=== PATIENT | female | born 1940 | race Caucasian/White ===

== ENCOUNTER 2017-12-19 10:02 | Inpatient (IN) | payer MEDICARE ==
[2017-12-19] MEDS ORDERED: CIPROFLOXACIN 400 MG IVPB ONE (10:42)
[2017-12-19] MEDS ORDERED: NS 0.9% 1000 ML* 1,000 ML IV ONE (10:42)
[2017-12-19] MEDS ORDERED: IVPREMIX IVPB ONE (10:42)
--- NOTE | 2017-12-19 10:47 | ED ---
Back Pain - HPI Summary HPI Summary: The patient is a 76 y/o F presenting to [facility] accompanied by daughter with a chief complaint of chronic back pain that has worsened within the last week. The intermittent sharp and excruciating pain is worse on the right lower side than the left, with an overall rating of 8/10 in severity. The pain is not aggravated or alleviated by anything, and she has not taken any medications to treat the pain [employer]. She additionally c/o fever of 101F, which started last night and has persisted into this morning. She denies dysuria. She has hx of kidney infections, but denies past renal calculi. Her daughter states that the pt has been having episodes of falling asleep while talking. She also has hx of angiosarcoma and breast cancer, but is in remission. She also visited Dr. Hurtado recently for a skin biopsy, which revealed squamous cell growth. - History of Current Complaint Chief Complaint: Jean Stated Complaint: LOWER BACK PAIN/FEVER Time Seen by Provider: 12/19/17 10:20 Hx Obtained From: Patient Onset/Duration: Sudden Onset, Lasting Hours - fever starting last night, Lasting Days - back pain for approximately a week, Still Present Onset/Duration: Started Hours Ago - fever starting last night, Started Days Ago - back pain for a week, Still Present Timing: Intermittent Back Pain Location: Is Discrete @ - bilateral sides, but worse on right lower side Severity Initially: Moderate Severity Currently: Moderate Pain Intensity: 8 Pain Scale Used: 0-10 Numeric Character: Sharp Aggravating Symptom(s): Nothing Alleviating Symptom(s): Nothing Associated Signs And Symptoms: Positive: Fever - 101F, Other - NEGATIVE: dysuria - Allergies/Home Medications Allergies/Adverse Reactions: Allergies Allergy/AdvReac Type Severity Reaction Status Date / Time brimonidine Allergy Intermediate Eyes Verified 12/19/17 10:11 Itchy/Swollen/Red/Watery dexamethasone Allergy Intermediate Rash Verified 12/19/17 10:11 acetaminophen Allergy Unknown See Comment Verified 12/19/17 10:11 Home Medications: Home Medications Azo Bladder Control Capsule 1 tab PO DAILY 12/19/17 [History Confirmed 12/19/17] Famotidine 40 mg PO DAILY 12/19/17 [History Confirmed 12/19/17] Fish Oil 1,000 mg Capsule 2,000 mg PO DAILY 12/19/17 [History Confirmed 12/19/17 ] Levothyroxine TAB* [Synthroid 125 MCG TAB*] 125 mcg PO DAILY 12/19/17 [History Confirmed 12/19/17] Lisinopril 20 mg PO DAILY 12/19/17 [History Confirmed 12/19/17] Magnesium Oxide 1 tab PO QID 12/19/17 [History Confirmed 12/19/17] Netarsudil Mesylate [Rhopressa] 1 drop BOTH EYES BEDTIME 12/19/17 [History Confirmed 12/19/17] Vitamin D TAB* 1 tab PO DAILY 12/19/17 [History Confirmed 12/19/17] dilTIAZem HCl [Diltiazem 24Hr ER] 1 tab PO DAILY 12/19/17 [History Confirmed 12/26] PMH/Surg Hx/FS Hx/Imm Hx Endocrine/Hematology History: Reports: Hx Diabetes, Hx Thyroid Disease - HYPO Denies: Hx Anticoagulant Therapy, Hx Systemic Lupus Erythematosus, Hx Anemia Cardiovascular History: Reports: Hx Hypertension, Other Cardiovascular Problems/ Disorders - 2010 DVT RIGHT CALF Denies: Hx Congestive Heart Failure, Hx Pacemaker/ICD Respiratory History: Reports: Hx Asthma - HX OF, NO INHALERS, Hx Sleep Apnea - will bring own CPAP from home Denies: Hx Chronic Obstructive Pulmonary Disease (COPD) GI History: Reports: Hx Gastroesophageal Reflux Disease, Hx Hiatal Hernia History: Reports: Other Problems/Disorders - HX OF BLADDER INFECTIONS, NONE NOW Denies: Hx Dialysis, Hx Renal Disease Musculoskeletal History: Reports: Hx Arthritis - BILATERAL KNEES, Other Musculoskeletal History - bilateral TKR Denies: Hx Rheumatoid Arthritis, Hx Osteoporosis Sensory History: Reports: Hx Cataracts, Hx Contacts or Glasses, Hx Glaucoma - BILAT, Hx Hearing Problem - QAGAN TAYAGUNGIN, no hearing aids Denies: Hx Hearing Aid Opthamlomology History: Reports: Hx Cataracts, Hx Contacts or Glasses, Hx Glaucoma - BILAT Neurological History: Denies: Hx Dementia, Hx Seizures Psychiatric History: Denies: Hx Panic Disorder, Hx Substance Abuse - Cancer History Cancer Type, Location and Year: BREAST CA, ANGIOSARCOMA Hx Chemotherapy: Yes Hx Radiation Therapy: Yes - for breast cancer - Surgical History Surgery Procedure, Year, and Place: bilateral TKR 1999, 2000 [facility]. RIGHT TOTAL KNEE REVISION 2010 [facility]. LT MASTECTOMY 05/23 [facility]. APPENDECTOMY. L BREAST LUMPECTOMY 1998 [facility]. ANGIOSARCOMA [facility]. 01/2015 BILATERAL CATARACT EXTRACTION WITH IOL IMPLANT AND ISTENTS PLACEMENT, [facility]- CONDITIONAL 5- SAFE UP TO 3T W/ MAX SPATIAL GRADIENT FIELD OF 4000 GAUSS/CM. RT SIDE PORT PLACEMENT 2015 Hx Anesthesia Reactions: No Infectious Disease History: No Infectious Disease History: Reports: History Other Infectious Disease - UNKNOWN INFECTION RIGHT TOTAL KNEE REPLACEMENT Denies: Hx Hepatitis, Hx Human Immunodeficiency Virus (HIV), Traveled Outside the [place] in Last 30 Days - Family History Known Family History: Positive: Hypertension - Social History Alcohol Use: None Hx Substance Use: No Substance Use Type: Reports: None Hx Tobacco Use: No Smoking Status (MU): Never Smoked Tobacco Review of Systems Positive: Fever - 101F Negative: dysuria Positive: Other - bilateral lower back pain with pain worse on right than left All Other Systems Reviewed And Are Negative: Yes Physical Exam - Summary Physical Exam Summary: Appearance: The patient is well-nourished in no acute distress and in no acute pain. Skin: The skin is warm and slightly diaphoretic and skin color reflects adequate perfusion. HEENT: The head is normocephalic and atraumatic. The pupils are equal and reactive. The conjunctivae are clear and without drainage. Nares are patent and without drainage. Mouth reveals moist mucous membranes and the throat is without erythema and exudate. The external ears are intact. The ear canals are patent and without drainage. The tympanic membranes are intact. Neck: The neck is supple with full range of motion and non-tender. There are no carotid bruits. There is no neck vein distension. Respiratory: Chest is non-tender. Lungs are clear to auscultation and breath sounds are symmetrical and equal. Cardiovascular: Heart is regular rate and rhythm. There is no murmur or rub auscultated. There is no peripheral edema and pulses are symmetrical and equal. Abdomen: The abdomen is soft and non-tender. There are normal bowel sounds heard in all four quadrants and there is no organomegaly palpated. Musculoskeletal: There is no back tenderness noted. Extremities are non-tender with full range of motion. There is good capillary refill. There is no peripheral edema or calf tenderness elicited. Neurological: Patient is alert and oriented to person, place and time. The patient has symmetrical motor strength in all four extremities. Cranial nerves are grossly intact. Deep tendon reflexes are symmetrical and equal in all four extremities. Psychiatric: The patient has an appropriate affect and does not exhibit any anxiety or depression. Triage Information Reviewed: Yes Vital Signs On Initial Exam: Initial Vitals Temp Pulse Resp BP Pulse Ox 101.5 F 85 14 161/60 96 12/19/17 10:06 12/19/17 10:06 12/19/17 10:06 12/19/17 10:06 12/19/17 10:06 Vital Signs Reviewed: Yes Diagnostics - Vital Signs Vital Signs Temp Pulse Resp BP Pulse Ox 12/19/17 10:06 101.5 F 85 14 161/60 96 - Laboratory Result Diagrams: 12/19/17 11:20 12/19/17 11:20 Lab Statement: Any lab studies that have been ordered have been reviewed, and results considered in the medical decision making process. - CT Abd/Pel CT CT Interpretation Completed By: Radiologist Summary of CT Findings: 1. Perinephric stranding on the right, which may indicate forniceal rupture versus pyelonephritis, with a probable 0.3 cm calculus of the right mid ureter, without significant hydronephrosis. 2. Atherosclerosis. 3. Diverticulosis. ED physician has reviewed this report. Back Pain Course/Dx - Course Course Of Treatment: Ms. Moreno presented with several days of right flank pain culminating in a fever today. She was not septic on arrival here but the story was pretty good for a pyelonephritis. Therefore she was given IV fluids and IV Cipro while labs and a CT were obtained. She has no history of kidney stones. She did had no leukocytosis, a CRP elevation over 100 and a urine that was somewhat equivocal with white blood cells and red blood cells but no bacteria. CT revealed a 3 mm midureteral stone on the right without hydro-and perinephritic stranding consistent with pyelo but possibly extravasation. Dr. jarquin was contacted came to the emergency department and evaluated the patient recommended admission to the hospitalist and adding gentamicin. - Diagnoses Provider Diagnoses: Pyelonephritis, Kidney stone on right side - Provider Notifications Discussed Care Of Patient With: Angel Green - urologist Time Discussed With Above Provider: 13:42 Instructed by Provider To: Other - Dr. Green will come see the patient in the ED. I also spoke with Dr. Gunderson, hospitalist, at [1355] concerning admission to [facility]. Dr. Gunderson accepts the patient for admission. - Critical Care Time Critical Care Time: 30-74 min Discharge - Sign-Out/Discharge Documenting (check all that apply): Patient Departure - Patient will be admitted to [facility] for further care under Dr. Gunderson. - Discharge Plan Condition: Stable Disposition: ADMITTED TO [facility] - Billing Disposition and Condition Condition: STABLE Disposition: Admitted to [facility] - Attestation Statements Document Initiated by Scribe: Yes Documenting Scribe: Marley Osorio Provider For Whom Marla is Documenting (Include Credential): Dr. Almas Fang MD Scribe Attestation: Marley Rich scribed for Dr. Almas Fang MD on 12/19/17 at 1540. Scribe Documentation Reviewed: Yes Provider Attestation: The documentation as recorded by the Marley juan accurately reflects the service I personally performed and the decisions made by me, Dr. Almas Fang MD
[2017-12-19 11:33] LABS: ABS Basophils 0.1 10^3/ul (0-0.2); ABS Eosinophils 0 10^3/ul (0-0.6); ABS Lymphocytes 1.1 10^3/ul (1.0-4.8); ABS Neutrophils 8.3 10^3/ul (1.5-7.7); ABS Nucleated RBC 0 10^3/ul; Eosinophil % 0.3 % (0-6); Hematocrit 37 % (35-47); Hemoglobin 12.2 g/dl (12.0-16.0); Lymphocyte % 10.1 % (25-47); Mean Corpuscular HGB Conc 33 g/dl (31-36); Mean Corpuscular Hemoglobin 30 pg (27-31); Mean Corpuscular Volume 91 fL (80-97); Mean Platelet Volume 7.6 fL (7.4-10.4); Nucleated Red Blood Cells % 0; Platelet Count 178 10^3/ul (150-450); Red Blood Count 4.01 10^6/ul (4.00-5.40); Red Cell Distribution Width 14 % (10.5-15); White Blood Count 10.5 10^3/ul (3.5-10.8)
[2017-12-19] MEDS ORDERED: Ibuprofen TAB* 600 MG PO ONE (12:35)
[2017-12-19 13:00] LABS: Urine Appearance Cloudy; Urine Blood 1+ (Negative); Urine Color Yellow; Urine Ketones Negative (Negative); Urine Protein Negative (Negative); Urine Red Blood Cell 3+(>10/hpf) (Absent); Urine Specific Gravity 1.012 (1.010-1.030); Urine Urobilinogen Negative (Negative); Urine White Blood Cell 3+(>20/hpf) (Absent)
[2017-12-19] MEDS ORDERED: Gentamicin ADULT (*) 40 MG/ML VIAL IVPB ONE (13:56)
[2017-12-19] MEDS ORDERED: Gentamicin ADULT (*) 160 MG in NS 0.9% 100 ML* 100 ML IVPB ONE (14:30)
[2017-12-19] MEDS: NS 0.9% 1000 ML* 1,000 ML IV ONE ×2 (14:45→15:17)
[2017-12-19] MEDS ORDERED: Ibuprofen TAB* 800 MG PO PRN (14:47)
[2017-12-19] MEDS ORDERED: Dextrose 50% Syringe 50 ML* 25 GM/50 ML SYRINGE IV PUSH PRN (14:59)
[2017-12-19] MEDS: oxyCODONE/Acetamin 5/325 MG* TAB PO PRN (16:06)
[2017-12-19] MEDS: Insulin LISPRO* 1 UNITS UNIT SUBCUT SCH (16:44)
--- NOTE | 2017-12-19 21:24 | HP ---
AMENDED REPORT NOW INCLUDES COSIGNER DESIGNATION CC: Dr. Cowart * [facility] MEDICINE HISTORY AND PHYSICAL: DATE OF ADMISSION: 12/19/17 PRIMARY CARE PHYSICIAN: Dr. Cowart. ATTENDING PHYSICIAN: Jessica Peralta MD * (dictation provided by Mnie Gunderson NP ) CHIEF COMPLAINT: Right-sided back pain with fever. HISTORY OF PRESENT ILLNESS: Ms. Moreno is a 76-year-old female with a past medical history of angiosarcoma and left breast cancer as well as hypertension, diabetes, and obstructive sleep apnea, with CPAP use who presents to the hospital today with right-sided back pain and fever. Ms. Moreno states that her symptoms began about 2 weeks ago. She was having pain in her right back. She has chronic back pain and thought that perhaps this was just an exacerbation of this; however, she does not typically have pain on the right side. As of yesterday, she was having much more severe pain on the right side. She also developed nausea, but no vomiting. Today, her daughter checked her temperature and noted to be 102 and therefore brought her to the emergency room for evaluation. The patient denies any dysuria, though she does report frequency. She denies chest pain, shortness of breath. She denies abdominal pain. In the emergency room, she was found to have a normal white blood cell count, but to have a fever up to 101.8. Her blood pressure was stable. She is not tachycardic. Urinalysis revealed 3+ leukocyte esterase, no nitrites, no bacteria. Abdomen pelvis CT showed perinephric stranding on the right with a 0.3 cm calculus, but that was nonobstructing. The patient had consultation with Dr. Green in the ED who felt that no stent was needed at this time due to the small size of the stone. He anticipated that it would pass on its own. 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 3. Hypertension. 4. Sleep apnea, using CPAP. 5. Type 2 diabetes, [id number]. 6. Hiatal hernia. 7. Chronic back pain. 8. DVT in the right lower extremity in 2000 at the time of her right knee replacement. PAST SURGICAL HISTORY: 1. Left mastectomy for ER and [place] positive, HER2 negative adenocarcinoma. 2. Total right knee in 2000 with secondary infection in 2010. 3. Left breast lumpectomy 16 years ago. 4. Appendectomy in 1980. 5. Bilateral eye surgery in 2014. ALLERGIES: To BRIMONIDINE, DEXAMETHASONE, and TIMOLOL. The patient has reported allergy to TYLENOL, but she just indicates that she does not want to take the medication out of fear that it will hurt her liver. FAMILY HISTORY: Unobtainable as the patient is adopted. SOCIAL HISTORY: No report of alcohol, tobacco, or drug use. The patient lives alone and states that her daughter, Anamaria, would be the healthcare proxy. REVIEW OF SYSTEMS: A 14-point review of systems was completed with Ms. Moreno and all those not mentioned above were negative. PHYSICAL EXAMINATION GENERAL: Ms. Moreno is lying in the bed. She is in no acute distress. VITAL SIGNS: Temperature 100.6, pulse rate 74, oxygen saturation 97, blood pressure 127/57. LUNGS: Clear to auscultation bilaterally with no accessory muscle use and good aeration. HEART: S1, S2. No murmur, rub, or gallop and regular. ABDOMEN: Soft, nontender with bowel sounds positive x4. EXTREMITIES: No cyanosis, no edema. NEURO: She is alert. She is oriented x3. She moves all extremities equally. There is no facial asymmetry or focal weakness. Extraocular movements are intact. SKIN: Intact. LABORATORY DATA/DIAGNOSTIC STUDIES: WBC 10.5, hemoglobin 12.2, hematocrit 37, platelet count 178. Sodium 131, potassium 4.2, chloride 100, serum bicarbonate 27, BUN 14, creatinine 0.72. CRP 116.45. Urine shows 3+ leukocyte esterase, no bacteria, no nitrites. CT abdomen and pelvis is read as follows: Occult perinephric stranding on the right, which may indicate forniceal rupture versus pyelonephritis with a probable 0.3 cm calculus of the right mid ureter without significant hydronephrosis. It also showed atherosclerosis with diverticulosis and a fat containing inguinal and abdominal hernias." ASSESSMENT AND PLAN: Ms. Moreno is a 76-year-old female with a past medical history of [id number] diabetes; obstructive sleep apnea, on CPAP; hypertension; adenocarcinoma; and breast cancer who presents today to the hospital with concern for right back pain and fever, found to have a right- sided pyelonephritis with a nonobstructing renal calculi. Our plans are for inpatient admission in the hospital for the followin. Pyelonephritis: I appreciate the consultation from Dr. Green. He states that he would recommend antibiotics only, unless the patient showed more signs of sepsis, which we will monitor more closely. At this time, she does not meet sepsis criteria. She only has a fever. Her lactic acid is normal. Blood cultures have been sent. Plan to treat with ciprofloxacin and await for culture results. 2. Hypertension. Plan to continue home diltiazem and lisinopril. 3. Hypothyroidism. Plan to continue levothyroxine. 4. Diabetes. Plan to hold metformin and have blood glucoses q.a.c. with lispro sliding scale insulin coverage. 5. Glaucoma. Continue home drops. 6. Code status is full code. TIME SPENT: Approximately 60 minutes were spent on the admission of this patient, more than half of the time was spent with the patient at the bedside reviewing the events leading up to this hospitalization, performing the physical examination, and reviewing my plan of care. MINE GUNDERSON NP [id number]/[facility] #: [id number] EVANGELINA
[2017-12-19] MEDS: Ciprofloxacin 400MG IVPREMIX(* 400 MG/200 ML BAG IVPB SCH (22:20)
[2017-12-19] MEDS: Heparin VIAL(*) 5000 UNITS/ML VIAL (FIVE THOUSAND) SUBCUT SCH (22:23)
[2017-12-19] MEDS: OPTHALMIC BOTH EYES SCH (22:26)
[2017-12-19] MEDS: RHOPRESSA 0.02% BOTH EYES SCH (22:26)
[2017-12-19] MEDS: PTO:Latanoprost 0.005%* 2.5 ml BTL BOTH EYES SCH (22:32)
--- NOTE | 2017-12-19 22:41 | CONS ---
CC: Dr. Sandoval Cowart; Dr. Green * CONSULTATION REPORT: DATE OF CONSULT: 12/19/17 REQUESTING PHYSICIAN: Dr. Almas Fang. DIAGNOSES: 1. Right flank pain. 2. Right pyelonephritis. 3. Nonobstructing calculus, right mid ureter. HISTORY OF PRESENT ILLNESS: Yue Moreno is a 76-year-old diabetic with history of recurrent urinary infections. She presented to the emergency room with abdominal and right flank pain and was noted to have urinalysis consistent with urinary tract infection. In addition, she is noted to have a 2 to 3 mm nonobstructing calculus in the mid right ureter. PAST MEDICAL HISTORY: Significant for: 1. Left breast cancer. 2. Hypertension. 3. Sleep apnea. 4. History of hiatal hernia. 5. History of deep venous thrombosis. 6. History of glaucoma. 7. History of thrombocytopenia. PAST SURGICAL HISTORY: Significant for surgery for left breast cancer, history of appendectomy and history of knee surgery. MEDICATIONS ON ADMISSION: 1. Pepcid 40 mg daily. 2. Pravastatin 40 mg daily. 3. Timolol ophthalmic solution 1% both eyes twice a day. 4. Lisinopril 20 mg daily. 5. Levothyroxine 125 mcg daily. 6. Metformin 1000 mg twice a day. 7. Diltiazem 1 tablet daily. ALLERGIES AND INTOLERANCES: BRIMONIDINE, DEXAMETHASONE EYE DROPS, and ACETAMINOPHEN. REVIEW OF SYSTEMS: She denies any chest pain or shortness of breath. There is no history of any major systemic or cardiovascular issues. PHYSICAL EXAM: Reveals a pleasant elderly lady, who is currently resting in bed comfortably. Her temperature at the time of initial presentation had been 101.8 and was rechecked and is now 100.6 (she was given 600 mg of Motrin between the 2 temperature assessments). Blood pressure is 152/61, pulse rate 81 per minute and regular, oxygen saturation 98% on room air. Cardiovascular Exam: Regular rate and rhythm. S1, S2. Lungs are clear bilaterally. Abdomen is soft with mild right flank tenderness. DIAGNOSTIC STUDIES/LAB DATA: Review of labs reveals a white count of 10.5, hemoglobin and hematocrit are 12.2 and 37, platelet count is 178,000. Review of chemistry reveals glucose of 143, BUN and creatinine are 14 and 0.72 respectively, lactic acid is 0.8, C-reactive protein is 116.45. Urinalysis shows pH of 8.0 with greater than 10 red blood cells per high powered field, greater than 20 white blood cells per high powered field and absent bacteria. I reviewed the imaging studies and it appears that the calculus is fairly tiny probably about 2 mm in the mid right ureter with no hydronephrosis noted. IMPRESSION AND PLAN: I had a detailed discussion with the patient and with Dr. Fang in the emergency department regarding the management since the calculus is fairly small and nonobstructing, I think she can be managed conservatively with hydration, intravenous antibiotics, and pain management as needed. If there are any signs of sepsis in the form of temperature greater than 102 or tachycardia or increasing pain or hypertension, then she would require urgent right stent insertion, but given the fairly small size of the calculus and the fact that the urinalysis does not show bacteria, I think hopefully this can be avoided. [id number]/[facility] #: [id number] MTDD
[2017-12-20] MEDS ORDERED: Morphine VIAL* 4 MG/ML VIAL (1 ml vial) IV PRN (02:13)
[2017-12-20] MEDS: Heparin VIAL(*) 5000 UNITS/ML VIAL (FIVE THOUSAND) SUBCUT SCH ×3 (04:57→21:46)
[2017-12-20] MEDS: Levothyroxine TAB* 125 MCG TAB PO SCH (06:24)
[2017-12-20] MEDS ORDERED: Gentamicin ADULT per pharmacy 1 NOTE MISC FOLLOW UP PRN (07:37)
[2017-12-20] MEDS ORDERED: NS 0.9% 1000 ML* 1,000 ML IV SCH (08:15)
[2017-12-20] MEDS ORDERED: PROCHLORPERAZINE INJ 5 MG/ML 2 ML VIAL IV PRN (09:00)
[2017-12-20] MEDS: Diltiazem CD CAP* 180 MG PO SCH (09:02)
[2017-12-20] MEDS: Lisinopril TAB* 10 MG PO SCH (09:02)
[2017-12-20] MEDS: Famotidine TAB* 20 MG PO SCH (09:02)
[2017-12-20] MEDS ORDERED: PROCHLORPERAZINE INJ 5 MG/ML 2 ML VIAL ONE (09:13)
[2017-12-20] MEDS: Insulin LISPRO* 1 UNITS UNIT SUBCUT SCH ×3 (09:15→16:37)
--- NOTE | 2017-12-20 10:42 | PN ---
Subjective Date of Service: 12/20/17 Interval History: HOSPITALIST PROGRESS NOTE Patient seen and examined at bedside. Care reviewed and d/w Roz Riggs RN. She feels better today. Right flank pain is much improved, denies N/V, dysuria. C/o hunger. Family History: Unchanged from Admission Social History: Unchanged from Admission Past Medical History: Unchanged from Admission Objective Active Medications: Dextrose (D50w Syringe 50 Ml*) 12.5 gm IV PUSH .FOR FS < 60 - SS PRN PRN Reason: FS < 60 Diltiazem HCl (Cardizem Cd Cap*) 180 mg PO DAILY [facility] Last Admin: 12/20/17 09:02 Dose: 180 mg Famotidine (Pepcid Tab*) 40 mg PO DAILY [facility] Last Admin: 12/20/17 09:02 Dose: 40 mg Heparin Sodium (Porcine) (Heparin Vial(*)) 5,000 units SUBCUT Q8HR [facility] Last Admin: 12/20/17 04:57 Dose: Not Given Ciprofloxacin/Dextrose (Cipro 400 Mg Ivpremix(*)) 400 mg in 200 mls @ 200 mls/ hr IVPB Q12H [facility] Last Admin: 12/19/17 22:20 Dose: 200 mls/hr Ibuprofen (Motrin Tab*) 800 mg PO Q8H PRN PRN Reason: PAIN Insulin Human Lispro (Humalog*) 0 units SUBCUT AC [facility]; Protocol Last Admin: 12/20/17 09:15 Dose: 1 unit Latanoprost (Xalatan 0.005%*) 1 drop BOTH EYES BEDTIME [facility] Last Admin: 12/19/17 22:32 Dose: 1 drop Levothyroxine Sodium (Synthroid Tab*) 125 mcg PO DAILY@0600 [facility] Last Admin: 12/20/17 06:24 Dose: 125 mcg Lisinopril (Prinivil Tab*) 20 mg PO DAILY [facility] Last Admin: 12/20/17 09:02 Dose: 20 mg Morphine Sulfate (Morphine Vial*) 2 mg IV Q4H PRN PRN Reason: PAIN Last Admin: 12/20/17 02:31 Dose: 2 mg Pto:Rhopressa ( Netarsudil) 0.02% Opthalmic Anette. 2.5ml 1 dose BOTH EYES BEDTIME [facility] Last Admin: 12/19/17 22:26 Dose: 1 dose Oxycodone/Acetaminophen (Percocet 5/325 Tab*) 1 tab PO Q4H PRN PRN Reason: PAIN Last Admin: 12/19/17 16:06 Dose: 1 tab Pharmacy Consult (Gentamicin Adult Per Pharmacy) 1 note FOLLOW UP .GENT PER PHARMACY PRN PRN Reason: PER PROTOCOL Stop: 01/03/18 07:37 Prochlorperazine Edisylate (Compazine Inj*) 5 mg IV Q6H PRN PRN Reason: NAUSEA/VOMITING Last Admin: 12/20/17 09:16 Dose: 5 mg Vital Signs - 8 hr 12/20/17 12/20/17 12/20/17 03:30 03:42 07:31 Temperature 99.8 F 99.0 F Pulse Rate 83 81 Respiratory 16 18 20 Rate Blood Pressure 153/58 151/66 (mmHg) O2 Sat by Pulse 93 96 Oximetry Oxygen Devices in Use Now: None Appearance: Pleasant elderly lady lying in bed in NAD. Eyes: No Scleral Icterus Ears/Nose/Mouth/Throat: Mucous Membranes Moist Neck: Trachea Midline Respiratory: Symmetrical Chest Expansion and Respiratory Effort, Clear to Auscultation Cardiovascular: NL Sounds; No Murmurs; No JVD, RRR Abdominal: NL Sounds; No Tenderness; No Distention Neurological: Alert and Oriented x 3, NL Muscle Strength and Tone Result Diagrams: 12/19/17 11:20 12/19/17 11:20 Assess/Plan/Problems-Billing Assessment: Mrs Moreno is a 76yo F with PMH of angiosarcoma, left breast adenocarcinoma, HTN , ZACKARY on CPAP, type 2 DM, who presented to ED with c/o right flank pain and fever, found to have sepsis secondary to pyelonephritis. - Patient Problems (1) Pyelonephritis Comment: - Improving. - Blood culture growing Gram negative bacilli - ID consult requested. - Follow up renal US shows resolution of hydronephrosis and no nephrolithiasis - d/w Urology - no indication for cystoscopy or stent. - Continue Cipro and Gentamycin #2. (2) Nephrolithiasis Comment: - Renal US did not show nephrolithiasis and resolution of hydronephrosis. (3) HTN (hypertension) Comment: - Controlled - continue Lisinopril. (4) Hypothyroidism Comment: - Continue levothyroxine. (5) Diabetes Comment: - Metformin on hold for now in the setting of acute infection. - Continue FS with Lispro SS. (6) DVT prophylaxis Comment: - SQ heparin. (7) Full code status Status and Disposition: Inpatient for management of pyelonephritis.
[2017-12-20] MEDS: Ciprofloxacin 400MG IVPREMIX(* 400 MG/200 ML BAG IVPB SCH (11:17)
[2017-12-20 11:45] LABS: ABS Basophils 0.1 10^3/ul (0-0.2); ABS Eosinophils 0 10^3/ul (0-0.6); ABS Monocytes 0.8 10^3/ul (0-0.8); ABS Neutrophils 6.2 10^3/ul (1.5-7.7); ABS Nucleated RBC 0 10^3/ul; Eosinophil % 0.1 % (0-6); Hematocrit 36 % (35-47); Lymphocyte % 12.6 % (25-47); Mean Corpuscular HGB Conc 34 g/dl (31-36); Mean Corpuscular Hemoglobin 30 pg (27-31); Mean Corpuscular Volume 91 fL (80-97); Mean Platelet Volume 7.6 fL (7.4-10.4); Nucleated Red Blood Cells % 0; Platelet Count 166 10^3/ul (150-450); Red Blood Count 3.95 10^6/ul (4.00-5.40); Red Cell Distribution Width 14 % (10.5-15); White Blood Count 8.2 10^3/ul (3.5-10.8)
[2017-12-20 12:07] LABS: EGFR Non-African American 107.8 (>60)
--- NOTE | 2017-12-20 14:24 | CONS ---
CONSULTATION REPORT: DATE OF CONSULT: 12/20/17 REQUESTING PHYSICIAN: Dr. Peralta. CONSULTING SERVICE: Infectious Disease. REASON FOR CONSULT: Pyelonephritis. IMPRESSION: 1. E. coli bacteremia due to pyelonephritis, overall improving. 2. Septic encephalopathy, improving. 3. Obesity. 4. Type 2 diabetes. RECOMMENDATION: We will change Cipro to ceftriaxone, await susceptibility data. Once she is improved, we will check a postvoid residual. As she continues to improve, we will change her to oral antibiotics based on the susceptibility report. HISTORY OF PRESENT ILLNESS: This is a 76-year-old woman admitted with right flank pain, had been getting worse over the period of couple of weeks. She initially thought it was her chronic back pain, but it was in different location , became more severe. She had fevers and chills. No dysuria or frequency. As she came to the hospital yesterday morning, urinalysis showed blood and leukocyte esterase. Her CRP was 115. She was febrile. Blood cultures were taken and which have since come back 2/4 growing E. coli. She has been on Cipro , tolerating it well. The pain is a bit better. She had a CT abdomen and pelvis and a kidney ultrasound that did not show hydronephrosis or stone disease. She has not had trouble emptying her bladder in the past. She does have a history of urinary tract infections over the last few years. PAST MEDICAL HISTORY: 1. Obesity. 2. Type 2 diabetes. 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 5. Treatment with mastectomy on the left. 6. Hypertension. 7. Obstructive sleep apnea, uses CPAP. 8. Hiatal hernia. 9. Chronic back pain. 10. DVT, 2000. 11. Osteoarthritis. 13. Left knee arthroplasty. 14. Status post right knee arthroplasty complicated by an infection, status post revision. 15. Status post appendectomy. MEDICATIONS: 1. Cipro 400 mg IV twice daily. 2. Famotidine. 3. Ibuprofen. 4. Levothyroxine. 5. Morphine. 6. Oxycodone. 7. Prochlorperazine. ALLERGIES: BRIMONIDINE, DEXAMETHASONE, TIMOLOL. FAMILY HISTORY: No recurrent infections that she knows of, though she is adopted, so otherwise unknown. SOCIAL HISTORY: No sick contacts. She is a nonsmoker. REVIEW OF SYSTEMS: A 14-point review of systems was negative, except as noted above in the history of present illness. PHYSICAL EXAM: Vital Signs: Temperature of 37, heart rate 80, respiratory rate 16, blood pressure 150/60, oxygen saturation 95% on room air. In general, she is awake, not in distress. Neurologic: She is oriented x3. Follows all commands. HEENT: There is no conjunctival hemorrhage. Oropharynx without lesions. Neck is supple without mass. Heart is regular rate and rhythm without murmurs, rubs, or gallops. Lungs are clear to auscultation bilaterally. Abdomen: Soft, nondistended. There are bowel sounds present. There is right flank tenderness to palpation. Skin: There is no rash or splinter hemorrhage. Musculoskeletal: There is no spine tenderness to palpation. LABORATORY DATA: White blood cell count 8, hemoglobin 12, platelets 166. Creatinine 0.5. Urinalysis shows blood. Please see impressions and recommendations as outlined above. Thanks for asking me to see Ms. Moreno in consultation. [id number]/[place] #: [id number] EVANGELINA
[2017-12-20] MEDS: oxyCODONE/Acetamin 5/325 MG* TAB PO PRN ×2 (16:34→20:49)
[2017-12-20] MEDS: cefTRIAXone(*) 1 GM in NS 0.9% 50 ML* 50 ML IVPB SCH (20:42)
[2017-12-20] MEDS: PTO:Latanoprost 0.005%* 2.5 ml BTL BOTH EYES SCH (20:48)
[2017-12-20] MEDS: OPTHALMIC BOTH EYES SCH (20:51)
[2017-12-20] MEDS: RHOPRESSA 0.02% BOTH EYES SCH (20:51)
[2017-12-21] MEDS: Levothyroxine TAB* 125 MCG TAB PO SCH (05:37)
[2017-12-21] MEDS: oxyCODONE/Acetamin 5/325 MG* TAB PO PRN ×2 (05:37→21:57)
[2017-12-21] MEDS: Heparin VIAL(*) 5000 UNITS/ML VIAL (FIVE THOUSAND) SUBCUT SCH ×3 (05:38→21:47)
[2017-12-21] MEDS: Diltiazem CD CAP* 180 MG PO SCH (08:29)
[2017-12-21] MEDS: Lisinopril TAB* 10 MG PO SCH (08:30)
[2017-12-21] MEDS: Famotidine TAB* 20 MG PO SCH (08:30)
[2017-12-21] MEDS ORDERED: Saline NASAL SPRAY 0.65%* BTL BOTH NARES PRN (09:01)
[2017-12-21] MEDS: Insulin LISPRO* 1 UNITS UNIT SUBCUT SCH ×3 (09:56→17:48)
--- NOTE | 2017-12-21 11:38 | PN ---
Subjective Date of Service: 12/21/17 Interval History: HOSPITALIST PROGRESS NOTE Patient seen and examined at bedside. Care reviewed and d/w Huan Lin RN. She feels improved today. More energy, flank pain is much improved, appetite is returning. Family History: Unchanged from Admission Social History: Unchanged from Admission Past Medical History: Unchanged from Admission Objective Active Medications: Dextrose (D50w Syringe 50 Ml*) 12.5 gm IV PUSH .FOR FS < 60 - SS PRN PRN Reason: FS < 60 Diltiazem HCl (Cardizem Cd Cap*) 180 mg PO DAILY [facility] Last Admin: 12/21/17 08:29 Dose: 180 mg Famotidine (Pepcid Tab*) 40 mg PO DAILY [facility] Last Admin: 12/21/17 08:30 Dose: 40 mg Heparin Sodium (Porcine) (Heparin Vial(*)) 5,000 units SUBCUT Q8HR [facility] Last Admin: 12/21/17 05:38 Dose: 5,000 units Ceftriaxone Sodium 1 gm/ (Sodium Chloride) 50 mls @ 200 mls/hr IVPB Q24H [facility] Last Admin: 12/20/17 20:42 Dose: 200 mls/hr Ibuprofen (Motrin Tab*) 800 mg PO Q8H PRN PRN Reason: PAIN Insulin Human Lispro (Humalog*) 0 units SUBCUT AC [facility]; Protocol Last Admin: 12/21/17 09:56 Dose: 1 unit Latanoprost (Xalatan 0.005%*) 1 drop BOTH EYES BEDTIME [facility] Last Admin: 12/20/17 20:48 Dose: 1 drop Levothyroxine Sodium (Synthroid Tab*) 125 mcg PO DAILY@0600 [facility] Last Admin: 12/21/17 05:37 Dose: 125 mcg Lisinopril (Prinivil Tab*) 20 mg PO DAILY [facility] Last Admin: 12/21/17 08:30 Dose: 20 mg Morphine Sulfate (Morphine Vial*) 2 mg IV Q4H PRN PRN Reason: PAIN Last Admin: 12/20/17 02:31 Dose: 2 mg Pto:Rhopressa ( Netarsudil) 0.02% Opthalmic Anette. 2.5ml 1 dose BOTH EYES BEDTIME [facility] Last Admin: 12/20/17 20:51 Dose: 1 dose Oxycodone/Acetaminophen (Percocet 5/325 Tab*) 1 tab PO Q4H PRN PRN Reason: PAIN Last Admin: 12/21/17 05:37 Dose: 1 tab Prochlorperazine Edisylate (Compazine Inj*) 5 mg IV Q6H PRN PRN Reason: NAUSEA/VOMITING Last Admin: 12/20/17 09:16 Dose: 5 mg Sodium Chloride (Sodium Chloride 0.65% Nasal [place]*) 1 spray BOTH NARES Q2H PRN PRN Reason: dryness Last Admin: 12/21/17 09:56 Dose: 1 spray Vital Signs - 8 hr 12/21/17 12/21/17 12/21/17 04:21 05:37 07:40 Temperature 98.4 F 98.5 F Pulse Rate 64 69 Respiratory 18 16 16 Rate Blood Pressure 139/58 140/62 (mmHg) O2 Sat by Pulse 96 94 Oximetry 12/21/17 12/21/17 07:41 11:24 Temperature 98.2 F Pulse Rate 69 Respiratory 16 16 Rate Blood Pressure 127/58 (mmHg) O2 Sat by Pulse 95 Oximetry Oxygen Devices in Use Now: None Appearance: Pleasant lady, sitting up in a chair in NAD. Eyes: No Scleral Icterus Ears/Nose/Mouth/Throat: Mucous Membranes Moist Neck: Trachea Midline Respiratory: Symmetrical Chest Expansion and Respiratory Effort, Clear to Auscultation Cardiovascular: NL Sounds; No Murmurs; No JVD, RRR Abdominal: NL Sounds; No Tenderness; No Distention Neurological: Alert and Oriented x 3, NL Muscle Strength and Tone Result Diagrams: 12/20/17 11:32 12/20/17 11:32 Microbiology and Other Data: Microbiology 12/19/17 11:03 Aerobic Blood Culture - Preliminary Blood Venous No Growth Day 2 Anaerobic Blood Culture - Preliminary 12/19/17 11:20 Aerobic Blood Culture - Final Blood Venous Escherichia Coli Anaerobic Blood Culture - Final Escherichia Coli 12/19/17 12:20 Urine Culture - Final Urine Escherichia Coli Strep Group B Assess/Plan/Problems-Billing Assessment: Mrs Moreno is a 76yo F with PMH of angiosarcoma, left breast adenocarcinoma, HTN , ZACKARY on CPAP, type 2 DM, who presented to ED with c/o right flank pain and fever, found to have sepsis secondary to pyelonephritis. - Patient Problems (1) Pyelonephritis Comment: - Improving. - Blood/urine culture growing E. coli - ID consult appreciated - continue Ceftriaxone. - Follow up renal US shows resolution of hydronephrosis and no nephrolithiasis - d/w Urology - no indication for cystoscopy or stent. - Follow up repeat blood cultures - if negative, will switch to PO antibiotics. (2) Nephrolithiasis Comment: - Renal US showed no nephrolithiasis and resolution of hydronephrosis. (3) HTN (hypertension) Comment: - Controlled - continue Lisinopril. (4) Hypothyroidism Comment: - Continue levothyroxine. (5) Diabetes Comment: - Metformin on hold for now in the setting of acute infection. - Continue FS with Lispro SS. (6) DVT prophylaxis Comment: - SQ heparin. (7) Full code status Status and Disposition: Inpatient for management of pyelonephritis.
[2017-12-21] MEDS: cefTRIAXone(*) 1 GM in NS 0.9% 50 ML* 50 ML IVPB SCH (19:24)
[2017-12-21] MEDS: RHOPRESSA 0.02% BOTH EYES SCH (21:56)
[2017-12-21] MEDS: OPTHALMIC BOTH EYES SCH (21:56)
[2017-12-21] MEDS: PTO:Latanoprost 0.005%* 2.5 ml BTL BOTH EYES SCH (21:56)
[2017-12-22] MEDS: Heparin VIAL(*) 5000 UNITS/ML VIAL (FIVE THOUSAND) SUBCUT SCH (06:05)
[2017-12-22] MEDS: Levothyroxine TAB* 125 MCG TAB PO SCH (06:05)
[2017-12-22] MEDS: Diltiazem CD CAP* 180 MG PO SCH (08:36)
[2017-12-22] MEDS: Famotidine TAB* 20 MG PO SCH (08:37)
[2017-12-22] MEDS: Lisinopril TAB* 10 MG PO SCH (08:38)
[2017-12-22 08:57] VITALS: BP 126/84
--- NOTE | 2017-12-22 09:02 | PN ---
Progress Note - Progress Note Date of Service: 12/22/17 SOAP: Subjective: CC: pyelonephritis HPI: 76 year old woman with Ecoli pyelo/bacteremia; pain much improved, energy good, walking the halls. No fever, rash, diarrhea, dysuria. Objective: Vital Signs Temp 36.3 C 12/22/17 08:56 Pulse 74 12/22/17 08:56 Resp 16 12/22/17 08:56 BP 126/84 12/22/17 08:56 Pulse Ox 97 12/22/17 08:56 Intake & Output 12/21/17 12/22/17 12/22/17 18:59 06:59 18:59 Intake Total 1440 855 Output Total 1050 1400 Balance 390 -545 Intake: IVPB 55 ABX - CEFTRIAXONE 55 Oral 1440 800 Output: Urine 1050 1400 Gen:awake, no distress HEENT: no thrush Heart:RRR no murmur Lungs:CTA BL Abd:+BS NT ND soft, no flank TTP Skin: no rash Laboratory Results - last 24 hr 12/21/17 12/21/17 12/22/17 11:34 17:42 07:22 POC Glucose (mg/dL) 131 H 99 140 H Assessment: 1. E.coli pyelonephritis and bacteremia 2. T2DM 3. obesity Plan: 1. amoxicillin 500 mg po tid for 7 more days, fu with me 1-2 weeks
[2017-12-22] MEDS: Insulin LISPRO* 1 UNITS UNIT SUBCUT SCH (09:03)
[2017-12-22] MEDS ORDERED: Amoxicillin PO (*) 500 MG CAP PO SCH (14:00)
--- NOTE | 2017-12-23 08:59 | DS ---
CC: Dr. Cowart; Dr. Dickey; Dr. Green DISCHARGE SUMMARY: DATE OF ADMISSION: 12/19/17 DATE OF DISCHARGE: 12/22/17 PRIMARY CARE PROVIDER: Dr. Cowart. INFECTIOUS DISEASE SPECIALIST: Dr. Dickey. CONSULTING UROLOGIST: Dr. Green. DISCHARGE DIAGNOSES: 1. Escherichia coli septicemia. 2. Right pyelonephritis. 3. Nephrolithiasis. SECONDARY DIAGNOSES: 1. History of angiosarcoma. 2. Invasive left breast ductal adenocarcinoma. 3. Hypertension. 4. Sleep apnea, on CPAP. 5. Type 2 diabetes. 6. Hiatal hernia. 7. Chronic back pain. 8. Deep venous thrombosis in the right lower extremity in 2000 when she had a right knee replacement. PAST SURGICAL HISTORY: 1. Status post left mastectomy for ER and TX positive, HER2 negative adenocarcinoma. 2. Total right knee replacement in 2000 with secondary infection in 2010. 3. Status post left breast lumpectomy 16 years ago. 4. Status post appendectomy in 1980. 5. Status post bilateral eye surgery in 2014. MEDICATION LIST: 1. Latanoprost 0.005% 1 drop to both eyes at bedtime. 2. Vitamin D 1 tablet p.o. daily. 3. Rhopressa 1 drop to both eyes at bedtime. 3. Fish oil 1000 mg p.o. daily. 4. AZO Bladder Control 1 tablet p.o. daily. 5. Magnesium oxide 1 tablet p.o. four times a day. 6. Famotidine 40 mg p.o. daily. 7. Pravastatin 40 mg p.o. at bedtime. 8. Lisinopril 20 mg p.o. daily. 9. Levothyroxine 125 mcg p.o. daily. 10. Metformin 1000 mg p.o. b.i.d. 11. Diltiazem 180 mg p.o. daily. New medications: 1. Amoxicillin 500 mg p.o. t.i.d. for 10 more days. 2. Acetaminophen 650 mg p.o. q.6 hours p.r.n. pain or fever. HOSPITAL COURSE: Ms. Moreno is a 76-year-old lady with a past medical history as stated above that presented to the emergency room with complaints of right- sided back pain with fever. Initially, she did not meet sepsis criteria as she was only febrile. I believe she did not have tachycardia as she is on Cardizem as outpatient, but I believe her sepsis was present on admission. As her clinical picture progressed, it became clear that the source of infection was pyelonephritis. CT of the abdomen and pelvis showed perinephric stranding on the right, which may indicate forniceal rupture versus pyelonephritis with a probable 0.3-cm calculus of the right mid ureter without significant hydronephrosis. The patient was seen in consultation by Urology (Dr. Green) and his recommendation was for repeat ultrasound, hydration, intravenous antibiotics, pain management, but if the patient had more episodes of fever, tachycardia, increasing pain, hypotension, he would place a ureteral stent urgently. A followup ultrasound showed no right hydronephrosis or nephrolithiasis and bilateral ureteral jets were identified. The patient's urine and blood cultures grew E. coli that was pansensitive. The patient was seen in consultation by Infectious Disease (Dr. Dickey) and his impression was the patient had E. coli bacteremia due to pyelonephritis and was overall improving. He recommended treatment with ceftriaxone and on discharge to transition patient to amoxicillin to complete 10 more days of treatment. Subsequent blood cultures showed no growth. The patient had significant improvement of her symptoms and was felt to be medically stable for discharge today to follow up with Dr. Cowart and Dr. Dickey as an outpatient. Depending on how she progresses, she may require followup with Dr. Green as well. PHYSICAL EXAMINATION: Vital Signs: Temperature 97.4, heart rate 74, respiratory rate 16, oxygen saturation 97% on room air, blood pressure is 126/ 84. General: The patient is a pleasant elderly lady sitting up in bed, in no acute distress. CVS: Normal S1 and S2, regular rate and rhythm. Chest: Breath sounds bilaterally with no added sounds. Abdomen: Soft, bowel sounds are present. No CVA tenderness. Neuro: She is alert and oriented x3, able to move all 4 extremities. DIET: Heart healthy, consistent carb diet. ACTIVITIES: As tolerated. DISPOSITION: To home. STATUS WHILE IN THE HOSPITAL: Inpatient. Please keep in mind this is a summarized version of this patient's hospital stay. If you need more information, please feel free to call me at [phone] or please obtain full medical records. TIME SPENT: Approximately 45 minutes was spent to complete this discharge. [id number]/[facility] #: [id number] MTDD
== END 2017-12-22 11:45 | disposition home or self-care (01) | DRG 872 ==
LOC: ED 10:02 → SSU 14:44
PROVIDERS: ADMIT Internal Medicine; ATTEND Internal Medicine
DX: A41.51 Sepsis due to Escherichia coli [E. coli] (principal); N12 Tubulo-interstitial nephritis, not specified as acute or chronic; N20.1 Calculus of ureter; N39.0 Urinary tract infection, site not specified; B96.20 Unspecified Escherichia coli [E. coli] as the cause of diseases classified elsewhere; N20.0 Calculus of kidney; I10 Essential (primary) hypertension; G47.33 Obstructive sleep apnea (adult) (pediatric); E11.9 Type 2 diabetes mellitus without complications; K44.9 Diaphragmatic hernia without obstruction or gangrene; E66.9 Obesity, unspecified; M54.9 Dorsalgia, unspecified; Z96.651 Presence of right artificial knee joint; H40.9 Unspecified glaucoma; Z86.718 Personal history of other venous thrombosis and embolism; Z85.3 Personal history of malignant neoplasm of breast; Z88.8 Allergy status to other drugs, medicaments and biological substances; Z79.84 Long term (current) use of oral hypoglycemic drugs; Z79.899 Other long term (current) drug therapy; Z68.35 Body mass index [BMI] 35.0-35.9, adult
CPT/HCPCS: 36415; 74176; 76775; 80048; 80053; 81003; 81015; 83605; 85025; 86140; 87040; 87077; 87086; 87186; 87205; 99284; A9270-GY; J0696; J0744; J0780; J1580; J1644; J2270

== ENCOUNTER 2020-04-19 08:39 | Observation (INO) ==
[2020-04-19 09:55] LABS: Influenza A Molecular Negative (Negative); Influenza B Molecular Negative (Negative)
[2020-04-19 10:12] LABS: Hematocrit 40 % (35-47); Hemoglobin 12.9 g/dL (12.0-16.0); Mean Corpuscular HGB Conc 33 g/dL (31-36); Mean Corpuscular Hemoglobin 30 pg (27-31); Mean Corpuscular Volume 92 fL (80-97); Red Blood Count 4.29 10^6 /uL (3.70-4.87); Red Cell Distribution Width 15 % (10-15); White Blood Count 12.3 10^3/uL (3.5-10.8)
[2020-04-19 10:21] LABS: Albumin 4.7 g/dL (3.2-5.2); Albumin/Globulin Ratio 1.2 (1-3); BUN/Creatinine Ratio 24.6 (8-20); C Reactive Protein 12.29 mg/L (<8.01); Calcium 11.1 mg/dL (8.6-10.3); EGFR African American 99.6 (>60); EGFR Non-African American 82.3 (>60); Globulin 3.9 g/dL (2-4); Total Bilirubin 0.4 mg/dL (0.2-1.0); Total Protein 8.6 g/dL (6.4-8.9)
[2020-04-19 10:45] LABS: ABS Basophils 0.1 10^3/ul (0-0.2); ABS Eosinophils 0.4 10^3/ul (0-0.6); ABS Lymphocytes 1.3 10^3/ul (1.0-4.8); ABS Monocytes 0.5 10^3/ul (0-0.8); ABS Neutrophils 10.1 10^3/ul (1.5-7.7); Eosinophil % 2.9 %; Lymphocyte % 10.8 %; Platelet Count 274 10^3/uL (150-450)
[2020-04-19 10:54] LABS: INR 1.01 (0.82-1.09)
[2020-04-19] MEDS ORDERED: Furosemide 40 mg/4 ml IV VIAL IV SLOW PU ONE (12:27)
[2020-04-19] MEDS ORDERED: Dextrose 50% Syringe 50 ml 25 GM/50 ML SYRINGE IV PUSH PRN (15:56)
[2020-04-19] MEDS ORDERED: Albuterol HFA INHALER 8 gm MDI INH PRN (17:54)
[2020-04-19] MEDS: Mometasone/Formoter 100/5 MDI INH SCH (19:37)
[2020-04-19] MEDS: Lidocaine 5% OINT TUBE TOPICAL SCH (19:56)
[2020-04-19] MEDS: Enoxaparin 40 MG/0.4 ML SYR SUBCUT SCH (20:12)
[2020-04-19] MEDS: CMCS: Pravastatin 20 mg TAB (NF) PO SCH (20:12)
[2020-04-19] MEDS: Latanoprost 0.005% 2.5 ml BTL BOTH EYES SCH (20:12)
[2020-04-19 20:18] LABS: BUN/Creatinine Ratio 22.2 (8-20); Calcium 10.7 mg/dL (8.6-10.3); EGFR African American 110.6 (>60); EGFR Non-African American 91.4 (>60); Potassium 3.7 mmol/L (3.5-5.0)
[2020-04-20] MEDS: Lidocaine 5% OINT TUBE TOPICAL SCH ×2 (03:25→09:15)
[2020-04-20 06:24] LABS: ABS Basophils 0.1 10^3/ul (0-0.2); ABS Eosinophils 0.5 10^3/ul (0-0.6); ABS Lymphocytes 1.6 10^3/ul (1.0-4.8); ABS Monocytes 0.5 10^3/ul (0-0.8); ABS Neutrophils 3.9 10^3/ul (1.5-7.7); Eosinophil % 7.4 %; Hematocrit 39 % (35-47); Hemoglobin 13.3 g/dL (12.0-16.0); Lymphocyte % 24.7 %; Mean Corpuscular HGB Conc 34 g/dL (31-36); Mean Corpuscular Hemoglobin 31 pg (27-31); Mean Corpuscular Volume 92 fL (80-97); Mean Platelet Volume 7.3 fL (7.4-10.4); Nucleated Red Blood Cells % 0.1; Platelet Count 261 10^3/uL (150-450); Red Blood Count 4.27 10^6 /uL (3.70-4.87); Red Cell Distribution Width 15 % (10-15); White Blood Count 6.6 10^3/uL (3.5-10.8)
[2020-04-20 06:47] LABS: BUN/Creatinine Ratio 32.4 (8-20); Calcium 11.1 mg/dL (8.6-10.3); EGFR African American 101.3 (>60); EGFR Non-African American 83.7 (>60); Magnesium 1.6 mg/dL (1.9-2.7)
[2020-04-20] MEDS: Mometasone/Formoter 100/5 MDI INH SCH ×2 (08:39→20:15)
[2020-04-20] MEDS ORDERED: NETARSUDIL LEFT EYE SCH (09:00)
[2020-04-20] MEDS ORDERED: OLOPATADINE 0.2% BOTH EYES SCH (09:00)
[2020-04-20] MEDS: Furosemide 40 mg/4 ml IV VIAL IV SCH (09:27)
[2020-04-20] MEDS ORDERED: NETARSUDIL BOTH EYES SCH (09:57)
[2020-04-20] MEDS: Latanoprost 0.005% 2.5 ml BTL BOTH EYES SCH (11:05)
[2020-04-20] MEDS ORDERED: Latanoprost 0.005% 2.5 ml BTL BOTH EYES SCH (21:00)
[2020-04-20] MEDS: CMCS: Pravastatin 20 mg TAB (NF) PO SCH (21:47)
[2020-04-20] MEDS: Enoxaparin 40 MG/0.4 ML SYR SUBCUT SCH (21:47)
[2020-04-21] MEDS: Furosemide 40 mg/4 ml IV VIAL IV SCH (07:40)
[2020-04-21] MEDS: Mometasone/Formoter 100/5 MDI INH SCH (08:37)
[2020-04-21 10:00] LABS: BUN/Creatinine Ratio 32.5 (8-20); Calcium 11.2 mg/dL (8.6-10.3); EGFR African American 80.4 (>60); EGFR Non-African American 66.5 (>60); Potassium 4.1 mmol/L (3.5-5.0)
[2020-04-21 10:59] VITALS: BP 116/55
== END 2020-04-21 14:05 | disposition home or self-care (01) ==
LOC: MED 08:39 → ED 08:39 → MED 17:45
PROVIDERS: ADMIT Internal Medicine; ATTEND Internal Medicine